=== PATIENT | male | born 1950 | race Caucasian/White ===

== ENCOUNTER 2019-01-30 13:38 | Inpatient (IN) ==
[2019-01-30] MEDS ORDERED: 0.9 % Sodium Chloride 1,000 ML IVC ONE (14:16)
[2019-01-30 15:20] LABS: Troponin I < 0.03 ng/mL (< 0.04)
[2019-01-30] MEDS ORDERED: Naloxone 0.4 MG/ML INJ IVP PRN (17:49)
[2019-01-30] MEDS ORDERED: Nitroglycerin 0.4 MG TAB.SUBL SL PRN (17:57)
[2019-01-30 18:21] LABS: Magnesium 2.3 mg/dL (1.6-2.6); Phosphorous 3.1 mg/dL (2.7-4.5)
[2019-01-30] MEDS: Levalbuterol Neb 0.63 MG/3 ML IH SCH (22:06)
[2019-01-30] MEDS: Budesonide/Formoterol 160/4.5 1 PUFF INH IH SCH (22:06)
[2019-01-30] MEDS: *HR* Heparin 5,000 UNIT/ML VIAL SQ SCH (22:17)
[2019-01-30] MEDS: predniSONE 20 MG TABLET PO SCH (22:23)
[2019-01-30] MEDS: *HR* Ticagrelor 90 MG TABLET PO SCH (22:24)
[2019-01-30] MEDS: Methocarbamol 750 MG TABLET PO SCH (22:26)
[2019-01-31] MEDS: Levalbuterol Neb 0.63 MG/3 ML IH SCH ×4 (04:55→22:00)
[2019-01-31] MEDS: *HR* Heparin 5,000 UNIT/ML VIAL SQ SCH ×2 (05:43→18:39)
[2019-01-31 07:35] LABS: Basophils % 0.4 %; Eosinophils # 0.2 K/mcL (0.0-0.6); Eosinophils % 2.3 %; Hematocrit 34.3 % (37.5-50.1); Hemoglobin 10.9 g/dL (12.9-16.9); Immature Granulocytes % 0.5 % (0-4); Lymphocytes # 1.2 K/mcL (0.6-4.6); Lymphocytes % 15.3 %; Mean Corpuscular HGB Conc 31.8 g/dL (31.6-35.5); Mean Corpuscular Hemoglobin 24.3 pg (28.0-33.3); Mean Corpuscular Volume 76.6 fL (83.0-100.0); Mean Platelet Volume 9.3 fL (9.4-12.4); Monocytes # 0.8 K/mcL (0.0-1.3); Neutrophils # 5.5 K/mcL (1.6-8.9); Platelet Count 314 K/mcL (140-400); Red Blood Count 4.48 M/mcL (4.19-5.50); Red Cell Distribution Width 16.9 % (11.5-14.5); Segmented Neutrophils % 71.5 %; White Blood Count 7.7 K/mcL (4.3-11.1)
[2019-01-31] MEDS: Aspirin Enteric Coated 81 MG Tablet PO SCH (07:50)
[2019-01-31] MEDS: *HR* Ticagrelor 90 MG TABLET PO SCH ×2 (07:50→20:37)
[2019-01-31] MEDS: predniSONE 20 MG TABLET PO SCH (07:50)
[2019-01-31] MEDS: Methocarbamol 750 MG TABLET PO SCH ×3 (07:51→20:39)
[2019-01-31] MEDS: Isosorbide MONOnitrate (24 HR) 30 MG TAB.ER.24H PO SCH (07:51)
[2019-01-31 08:02] LABS: BUN/Creatinine Ratio 9 (6-26); Blood Urea Nitrogen 11 mg/dL (8-23); Calcium 8.4 mg/dL (8.6-10.3); Carbon Dioxide 20 mEq/L (23-29); Chloride 106 mEq/L (98-107); Glucose 113 mg/dL (70-105); Osmolality,Calculated 284 (280-300); Potassium 3.9 mEq/L (3.5-5.1); Sodium 137 mEq/L (136-145); eGFR For African Americans > 60 (> 60); eGFR For Non-African Americans > 60 (> 60)
[2019-01-31] MEDS: Tiotropium 18 MCG inhalation IH SCH (10:22)
[2019-01-31] MEDS: Budesonide/Formoterol 160/4.5 1 PUFF INH IH SCH ×2 (10:22→22:00)
[2019-01-31] MEDS ORDERED: 0.9 % Sodium Chloride 250 ML IVC ONE (12:25)
[2019-01-31] MEDS ORDERED: 0.9 % Sodium Chloride 250 ML ONE (12:27)
[2019-01-31] MEDS: Ondansetron ODT 4 MG TAB.RAPDIS SL PRN (13:00)
[2019-02-01 03:17] LABS: % Iron Saturation 5 % (20-55); Iron 12 mcg/dL (65-175); Transferrin 186 mg/dL (203-362)
[2019-02-01 03:33] LABS: Ferritin 117 ng/mL (20-250)
[2019-02-01 03:39] LABS: Folate 15.4 ng/mL (3.0-16.0)
[2019-02-01] MEDS: Levalbuterol Neb 0.63 MG/3 ML IH SCH ×4 (03:40→22:29)
[2019-02-01] MEDS ORDERED: 0.9 % Sodium Chloride 500 ML IVC ONE (04:22)
[2019-02-01] MEDS ORDERED: *HR* Metoprolol 5 MG/5 ML VIAL IVP ONE ×3 (04:22→04:49)
[2019-02-01] MEDS ORDERED: 0.9 % Sodium Chloride 500 ML ONE (04:23)
[2019-02-01 05:04] LABS: Basophils % 0.1 %; Eosinophils # 0.2 K/mcL (0.0-0.6); Eosinophils % 1.8 %; Hematocrit 34.3 % (37.5-50.1); Hemoglobin 10.8 g/dL (12.9-16.9); Immature Granulocytes % 0.6 % (0-4); Lymphocytes # 1.1 K/mcL (0.6-4.6); Mean Corpuscular HGB Conc 31.5 g/dL (31.6-35.5); Mean Corpuscular Hemoglobin 24.4 pg (28.0-33.3); Mean Corpuscular Volume 77.6 fL (83.0-100.0); Mean Platelet Volume 9.4 fL (9.4-12.4); Monocytes # 0.9 K/mcL (0.0-1.3); Monocytes % 9.6 %; Neutrophils # 6.7 K/mcL (1.6-8.9); Platelet Count 310 K/mcL (140-400); Red Blood Count 4.42 M/mcL (4.19-5.50); Red Cell Distribution Width 16.8 % (11.5-14.5); Segmented Neutrophils % 75.9 %; White Blood Count 8.9 K/mcL (4.3-11.1)
[2019-02-01 05:07] LABS: BUN/Creatinine Ratio 10 (6-26); Blood Urea Nitrogen 12 mg/dL (8-23); Calcium 8.1 mg/dL (8.6-10.3); Carbon Dioxide 18 mEq/L (23-29); Chloride 105 mEq/L (98-107); Glucose 121 mg/dL (70-105); Magnesium 2.1 mg/dL (1.6-2.6); Osmolality,Calculated 277 (280-300); Potassium 3.9 mEq/L (3.5-5.1); Sodium 133 mEq/L (136-145); eGFR For African Americans > 60 (> 60); eGFR For Non-African Americans 58 (> 60)
[2019-02-01] MEDS ORDERED: 0.9 % Sodium Chloride 500 ML IV ONE (05:11)
[2019-02-01] MEDS ORDERED: Amiodarone Premix 150 MG/100 ML BAG IVPB ONE (05:27)
[2019-02-01] MEDS ORDERED: Amiodarone Premix 360 MG/200 ML BAG IVC ONE (06:00)
[2019-02-01] MEDS: *HR* Heparin 5,000 UNIT/ML VIAL SQ SCH (06:05)
[2019-02-01] MEDS: Aspirin Enteric Coated 81 MG Tablet PO SCH (09:12)
[2019-02-01] MEDS: Methocarbamol 750 MG TABLET PO SCH ×2 (09:12→21:05)
[2019-02-01] MEDS: Isosorbide MONOnitrate (24 HR) 30 MG TAB.ER.24H PO SCH (09:12)
[2019-02-01] MEDS: *HR* Ticagrelor 90 MG TABLET PO SCH ×2 (09:12→21:05)
[2019-02-01] MEDS: Tiotropium 18 MCG inhalation IH SCH (09:43)
[2019-02-01] MEDS: Budesonide/Formoterol 160/4.5 1 PUFF INH IH SCH ×2 (09:46→22:35)
[2019-02-01] MEDS: Amiodarone Premix 360 MG/200 ML BAG IVC SCH (12:06)
[2019-02-01] MEDS ORDERED: *HR* Heparin 5,000 UNIT/ML VIAL IVP PRN (12:52)
[2019-02-01 13:52] LABS: Hematocrit 34.5 % (37.5-50.1); Hemoglobin 10.8 g/dL (12.9-16.9); Mean Corpuscular HGB Conc 31.3 g/dL (31.6-35.5); Mean Corpuscular Hemoglobin 24.4 pg (28.0-33.3); Mean Corpuscular Volume 77.9 fL (83.0-100.0); Mean Platelet Volume 9.1 fL (9.4-12.4); Platelet Count 298 K/mcL (140-400); Red Blood Count 4.43 M/mcL (4.19-5.50); Red Cell Distribution Width 16.9 % (11.5-14.5); White Blood Count 7.8 K/mcL (4.3-11.1)
[2019-02-01 14:04] LABS: INR 1.2
[2019-02-01] MEDS ORDERED: Ferumoxytol 510 MG in 0.9 % Sodium Chloride 100 ML IVPB ONE (14:22)
[2019-02-01] MEDS: Heparin 25,000 UNIT/250 ML D5W 25,000 UNIT/250 ML IV.SOLN IVC SCH (15:06)
[2019-02-01] MEDS: Acetaminophen 325 MG TABLET PO PRN ×2 (16:02→22:44)
[2019-02-02] MEDS: *HR* Heparin 5,000 UNIT/ML VIAL IVP PRN ×2 (00:25→07:58)
[2019-02-02] MEDS: Amiodarone Premix 360 MG/200 ML BAG IVC SCH (00:27)
[2019-02-02] MEDS: Levalbuterol Neb 0.63 MG/3 ML IH SCH ×4 (03:52→23:06)
[2019-02-02 07:04] LABS: Basophils % 0.4 %; Eosinophils # 0.1 K/mcL (0.0-0.6); Eosinophils % 1.7 %; Hematocrit 36.4 % (37.5-50.1); Hemoglobin 11.5 g/dL (12.9-16.9); Immature Granulocytes % 0.5 % (0-4); Lymphocytes # 0.9 K/mcL (0.6-4.6); Lymphocytes % 10.5 %; Mean Corpuscular HGB Conc 31.6 g/dL (31.6-35.5); Mean Corpuscular Hemoglobin 24.2 pg (28.0-33.3); Mean Corpuscular Volume 76.6 fL (83.0-100.0); Mean Platelet Volume 8.9 fL (9.4-12.4); Monocytes # 0.8 K/mcL (0.0-1.3); Monocytes % 9.5 %; Neutrophils # 6.5 K/mcL (1.6-8.9); Platelet Count 296 K/mcL (140-400); Red Blood Count 4.75 M/mcL (4.19-5.50); Red Cell Distribution Width 16.8 % (11.5-14.5); Segmented Neutrophils % 77.4 %; White Blood Count 8.4 K/mcL (4.3-11.1)
[2019-02-02 07:24] LABS: BUN/Creatinine Ratio 9 (6-26); Blood Urea Nitrogen 9 mg/dL (8-23); Calcium 8.7 mg/dL (8.6-10.3); Carbon Dioxide 21 mEq/L (23-29); Chloride 104 mEq/L (98-107); Glucose 125 mg/dL (70-105); Osmolality,Calculated 280 (280-300); Potassium 3.8 mEq/L (3.5-5.1); Sodium 135 mEq/L (136-145); eGFR For African Americans > 60 (> 60); eGFR For Non-African Americans > 60 (> 60)
[2019-02-02] MEDS: Methocarbamol 750 MG TABLET PO SCH ×2 (07:42→21:04)
[2019-02-02] MEDS: *HR* Ticagrelor 90 MG TABLET PO SCH (07:42)
[2019-02-02] MEDS: Isosorbide MONOnitrate (24 HR) 30 MG TAB.ER.24H PO SCH (07:42)
[2019-02-02] MEDS: Aspirin Enteric Coated 81 MG Tablet PO SCH (07:42)
[2019-02-02] MEDS: Budesonide/Formoterol 160/4.5 1 PUFF INH IH SCH ×2 (10:34→23:06)
[2019-02-02] MEDS: Tiotropium 18 MCG inhalation IH SCH (10:39)
[2019-02-02] MEDS: Metoprolol XL (24 HR) Succ 25 MG TAB.ER.24H PO SCH (11:35)
[2019-02-02] MEDS: Heparin 25,000 UNIT/250 ML D5W 25,000 UNIT/250 ML IV.SOLN IVC SCH (11:36)
[2019-02-02] MEDS: Ondansetron ODT 4 MG TAB.RAPDIS SL PRN (14:38)
[2019-02-02] MEDS: *HR* Rivaroxaban 10 MG TABLET PO SCH (17:02)
[2019-02-02] MEDS: Acetaminophen 325 MG TABLET PO PRN (21:26)
[2019-02-03] MEDS: Levalbuterol Neb 0.63 MG/3 ML IH SCH ×4 (04:36→22:58)
[2019-02-03] MEDS: Aspirin Enteric Coated 81 MG Tablet PO SCH (08:12)
[2019-02-03] MEDS: Methocarbamol 750 MG TABLET PO SCH ×2 (08:12→20:38)
[2019-02-03] MEDS: Isosorbide MONOnitrate (24 HR) 30 MG TAB.ER.24H PO SCH (08:13)
[2019-02-03] MEDS: Metoprolol XL (24 HR) Succ 25 MG TAB.ER.24H PO SCH (08:13)
[2019-02-03] MEDS: Acetaminophen 325 MG TABLET PO PRN ×2 (08:13→17:11)
[2019-02-03] MEDS: Tiotropium 18 MCG inhalation IH SCH (10:48)
[2019-02-03] MEDS: Budesonide/Formoterol 160/4.5 1 PUFF INH IH SCH ×2 (10:49→22:58)
[2019-02-03] MEDS: *HR* Rivaroxaban 10 MG TABLET PO SCH (16:01)
[2019-02-04] MEDS: Levalbuterol Neb 0.63 MG/3 ML IH SCH ×4 (04:07→22:53)
[2019-02-04] MEDS: Aspirin Enteric Coated 81 MG Tablet PO SCH (08:22)
[2019-02-04] MEDS: Methocarbamol 750 MG TABLET PO SCH ×2 (08:22→21:19)
[2019-02-04] MEDS: Budesonide/Formoterol 160/4.5 1 PUFF INH IH SCH ×2 (10:29→22:52)
[2019-02-04] MEDS: Tiotropium 18 MCG inhalation IH SCH (13:31)
[2019-02-04] MEDS: *HR* Rivaroxaban 10 MG TABLET PO SCH (17:03)
[2019-02-04] MEDS: Sennosides/Docusate Sodium TABLET PO SCH ×2 (17:03→21:19)
[2019-02-05] MEDS: Levalbuterol Neb 0.63 MG/3 ML IH SCH ×3 (04:47→15:58)
[2019-02-05] MEDS: Methocarbamol 750 MG TABLET PO SCH (07:49)
[2019-02-05] MEDS: Aspirin Enteric Coated 81 MG Tablet PO SCH (07:49)
[2019-02-05] MEDS: Sennosides/Docusate Sodium TABLET PO SCH (07:50)
[2019-02-05] MEDS: Budesonide/Formoterol 160/4.5 1 PUFF INH IH SCH (10:59)
[2019-02-05] MEDS: Tiotropium 18 MCG inhalation IH SCH (11:00)
[2019-02-05 16:17] VITALS: BP 97/62
[2019-02-05] MEDS: *HR* Rivaroxaban 10 MG TABLET PO SCH (17:16)
== END 2019-02-05 18:40 | disposition home or self-care (01) | DRG 309 ==
LOC: 3BNU 13:38 → EMEROOARM 13:38 → SUATTDRO 21:05 → 3BNU 21:40 → ICNU 02-01 05:48 → 2NNU 02-01 18:52
PROVIDERS: ADMIT Family Medicine; ATTEND Internal Medicine

== ENCOUNTER 2021-01-07 14:18 | Inpatient (IN) ==
[2021-01-07] MEDS ORDERED: Ondansetron 4 MG/2 ML VIAL IVP PRN (16:36)
[2021-01-07] MEDS ORDERED: Naloxone 0.4 MG/ML INJ IVP PRN (16:36)
[2021-01-07 17:45] LABS: Basophils % 0.6 %; Eosinophils # 0.3 K/mcL (0.0-0.6); Eosinophils % 5.3 %; Hematocrit 29.2 % (37.5-50.1); Hemoglobin 9.3 g/dL (12.9-16.9); Immature Granulocytes % 0.6 % (0-4); Lymphocytes # 1.1 K/mcL (0.6-4.6); Lymphocytes % 16.9 %; Mean Corpuscular HGB Conc 31.8 g/dL (31.6-35.5); Mean Corpuscular Hemoglobin 26.6 pg (28.0-33.3); Mean Corpuscular Volume 83.4 fL (83.0-100.0); Monocytes # 0.6 K/mcL (0.0-1.3); Monocytes % 9.8 %; Neutrophils # 4.2 K/mcL (1.6-8.9); Platelet Count 292 K/mcL (140-400); Red Cell Distribution Width 15.5 % (11.5-14.5); Segmented Neutrophils % 66.8 %; White Blood Count 6.2 K/mcL (4.3-11.1)
[2021-01-07 17:58] LABS: BUN/Creatinine Ratio 20 (6-26); Blood Urea Nitrogen 17 mg/dL (8-23); Calcium 8.7 mg/dL (8.6-10.3); Carbon Dioxide 22 mEq/L (23-29); Chloride 96 mEq/L (98-107); Glucose 117 mg/dL (70-105); Magnesium 2.1 mg/dL (1.6-2.6); Osmolality,Calculated 271 (280-300); Potassium 3.5 mEq/L (3.5-5.1); Sodium 129 mEq/L (136-145); Troponin I < 0.03 ng/mL (< 0.04); eGFR For African Americans > 60 (> 60); eGFR For Non-African Americans > 60 (> 60)
[2021-01-07 17:59] LABS: INR 1.7; Prothrombin Time 19.7 Seconds (9.4-12.1)
[2021-01-07] MEDS ORDERED: cefTRIAXone 1,000 MG in Water for inj. (sterile) 10 ML IVP SCH (19:00)
[2021-01-07] MEDS ORDERED: cefTRIAXone 1,000 MG in 0.9 % Sodium Chloride Mini Bag 100 ML IVPB SCH (19:00)
[2021-01-07] MEDS ORDERED: Azithromycin 500 MG in 0.9 % Sodium Chloride 250 ML IVPB SCH (19:00)
[2021-01-07 19:22] LABS: Adenovirus Not Detected (Not Detect); Bordetella Pertussis Not Detected (Not Detect); Chlamydophila pneumoniae Not Detected (Not Detect); Coronavirus 229E Not Detected (Not Detect); Coronavirus HKU1 Not Detected (Not Detect); Coronavirus NL63 Not Detected (Not Detect); Coronavirus OC43 Not Detected (Not Detect); Human Metapneumovirus Not Detected (Not Detect); Human Rhinovirus/Enterovirus Not Detected (Not Detect); Influenza A Subtype 2009 H1 Not Detected (Not Detect); Influenza B Not Detected (Not Detect); Mycoplasma pneumoniae Not Detected (Not Detect); Parainfluenza Virus 1 Not Detected (Not Detect); Parainfluenza Virus 2 Not Detected (Not Detect); Parainfluenza Virus 3 Not Detected (Not Detect); Parainfluenza Virus 4 Not Detected (Not Detect); Respiratory Syncytial Virus Not Detected (Not Detect); SARS-CoV-2 Not Detected (Not Detect)
[2021-01-07] MEDS ORDERED: Ipratropium/Albuterol Neb 3 ML IH PRN (19:36)
[2021-01-07] MEDS ORDERED: D5% in 0.9% NACL 1,000 ML IVC SCH (19:45)
[2021-01-07] MEDS: Piperacillin/Tazobactam 3.375 GM in 0.9 % Sodium Chloride Mini Bag 100 ML IVPB SCH (20:52)
[2021-01-07] MEDS ORDERED: *HR* Metoprolol 5 MG/5 ML VIAL IVP PRN (21:04)
[2021-01-07] MEDS: *HR* Enoxaparin 80 MG/0.8 ML SYRINGE SQ SCH (21:30)
[2021-01-08 02:15] LABS: Basophils % 0.7 %; Eosinophils # 0.3 K/mcL (0.0-0.6); Eosinophils % 7.6 %; Hematocrit 23.2 % (37.5-50.1); Immature Granulocytes % 0.4 % (0-4); Lymphocytes # 0.8 K/mcL (0.6-4.6); Lymphocytes % 18.2 %; Mean Corpuscular HGB Conc 32.3 g/dL (31.6-35.5); Mean Corpuscular Hemoglobin 26.5 pg (28.0-33.3); Mean Platelet Volume 9.3 fL (9.4-12.4); Monocytes # 0.6 K/mcL (0.0-1.3); Monocytes % 14.1 %; Neutrophils # 2.6 K/mcL (1.6-8.9); Platelet Count 264 K/mcL (140-400); Red Blood Count 2.83 M/mcL (4.19-5.50); Red Cell Distribution Width 15.5 % (11.5-14.5); White Blood Count 4.5 K/mcL (4.3-11.1)
[2021-01-08 02:17] LABS: Hemoglobin 7.5 g/dL (12.9-16.9)
[2021-01-08 02:35] LABS: % Iron Saturation 10 % (20-55); Iron 18 mcg/dL (65-175); Transferrin 128 mg/dL (203-362)
[2021-01-08 02:37] LABS: Alanine Aminotransferase 95 Units/L (7-52); Albumin 2.5 g/dL (3.5-5.7); Albumin/Globulin Ratio 0.8 (1.1-2.2); Alkaline Phosphatase 108 Units/L (34-104); Aspartate Amino Transferase 100 Units/L (13-39); BUN/Creatinine Ratio 17 (6-26); Bilirubin,Direct 0.1 mg/dL (0.0-0.2); Bilirubin,Indirect 0.4 mg/dL (0.0-1.0); Bilirubin,Total 0.5 mg/dL (0.3-1.0); Blood Urea Nitrogen 14 mg/dL (8-23); Calcium 7.9 mg/dL (8.6-10.3); Carbon Dioxide 20 mEq/L (23-29); Chloride 101 mEq/L (98-107); Globulin 3.1 g/dL (2.4-3.5); Glucose 107 mg/dL (70-105); Osmolality,Calculated 271 (280-300); Potassium 3.4 mEq/L (3.5-5.1); Sodium 130 mEq/L (136-145); Total Protein 5.6 g/dL (6.4-8.9); eGFR For African Americans > 60 (> 60); eGFR For Non-African Americans > 60 (> 60)
[2021-01-08 02:41] LABS: Thyroid Stimulating Hormone 3.571 mcIU/mL (0.340-5.600)
[2021-01-08 02:45] LABS: Ferritin 521 ng/mL (20-250)
[2021-01-08 02:51] LABS: Folate 20.9 ng/mL (3.0-16.0)
[2021-01-08 02:54] LABS: Vitamin B12 > 1500 pg/mL (250-1100)
[2021-01-08] MEDS: Piperacillin/Tazobactam 3.375 GM in 0.9 % Sodium Chloride Mini Bag 100 ML IVPB SCH ×3 (03:57→21:56)
[2021-01-08] MEDS ORDERED: Potassium Chloride Elixir 20 MEQ/15 ML UDC PO ONE (04:19)
[2021-01-08] MEDS ORDERED: 0.9 % Sodium Chloride 250 ML IVC SCH (04:30)
[2021-01-08] MEDS ORDERED: Potassium Chloride 40 MEQ, Lidocaine 1% 2 ML in 0.9 % Sodium Chloride 500 ML IVPB ONE (04:52)
[2021-01-08 06:48] LABS: Hematocrit 23.9 % (37.5-50.1); Hemoglobin 7.6 g/dL (12.9-16.9)
[2021-01-08] MEDS: *HR* Enoxaparin 80 MG/0.8 ML SYRINGE SQ SCH (06:51)
[2021-01-08] MEDS ORDERED: D5% in 0.9% NACL 1,000 ML IVC SCH (07:15)
[2021-01-08] MEDS: Nicotine 14 MG PATCH.TD24 TD SCH (09:06)
[2021-01-08] MEDS ORDERED: Nitroglycerin 0.4 MG TAB.SUBL SL PRN (10:11)
[2021-01-08] MEDS ORDERED: Levalbuterol 1 PUFF INHALER IH PRN (10:11)
[2021-01-08 11:15] LABS: Hematocrit 24.3 % (37.5-50.1); Hemoglobin 7.7 g/dL (12.9-16.9)
[2021-01-08] MEDS: Levalbuterol Neb 1.25 MG/3 ML IH SCH ×3 (11:34→21:57)
[2021-01-08] MEDS: Artificial Tears SOLN 15 ML BOTTLE BOTH EYES SCH ×3 (13:50→21:59)
[2021-01-09 02:59] LABS: Basophils % 0.3 %; Eosinophils # 0.3 K/mcL (0.0-0.6); Eosinophils % 5.4 %; Hematocrit 28.7 % (37.5-50.1); Immature Granulocytes % 0.7 % (0-4); Lymphocytes # 0.8 K/mcL (0.6-4.6); Lymphocytes % 13.9 %; Mean Corpuscular HGB Conc 33.4 g/dL (31.6-35.5); Mean Corpuscular Hemoglobin 27.4 pg (28.0-33.3); Mean Corpuscular Volume 81.8 fL (83.0-100.0); Mean Platelet Volume 8.7 fL (9.4-12.4); Monocytes # 0.7 K/mcL (0.0-1.3); Platelet Count 270 K/mcL (140-400); Red Blood Count 3.51 M/mcL (4.19-5.50); Red Cell Distribution Width 15.2 % (11.5-14.5); Segmented Neutrophils % 67.7 %; White Blood Count 5.9 K/mcL (4.3-11.1)
[2021-01-09 03:00] LABS: Hemoglobin 9.6 g/dL (12.9-16.9)
[2021-01-09 03:18] LABS: BUN/Creatinine Ratio 12 (6-26); Blood Urea Nitrogen 9 mg/dL (8-23); Calcium 8.4 mg/dL (8.6-10.3); Carbon Dioxide 21 mEq/L (23-29); Chloride 102 mEq/L (98-107); Glucose 114 mg/dL (70-105); Osmolality,Calculated 270 (280-300); Potassium 3.8 mEq/L (3.5-5.1); Sodium 130 mEq/L (136-145); eGFR For African Americans > 60 (> 60); eGFR For Non-African Americans > 60 (> 60)
[2021-01-09] MEDS: Levalbuterol Neb 1.25 MG/3 ML IH SCH ×4 (04:00→22:32)
[2021-01-09] MEDS: Piperacillin/Tazobactam 3.375 GM in 0.9 % Sodium Chloride Mini Bag 100 ML IVPB SCH ×3 (04:52→20:48)
[2021-01-09] MEDS: Nicotine 14 MG PATCH.TD24 TD SCH (08:03)
[2021-01-09] MEDS: Artificial Tears SOLN 15 ML BOTTLE BOTH EYES SCH ×4 (09:31→20:50)
[2021-01-09] MEDS: Isosorbide MONOnitrate (24 HR) 30 MG TAB.ER.24H PO SCH (09:36)
[2021-01-09] MEDS: Pantoprazole 40 MG VIAL IVP SCH (09:39)
[2021-01-09] MEDS ORDERED: Lidocaine -MPF 2% 2 ML VIAL ONE (12:12)
[2021-01-09] MEDS ORDERED: *HR* Etomidate 40 MG/20 ML VIAL IVP ONE (12:26)
[2021-01-09] MEDS ORDERED: *HR* LORazepam 2 MG/ML VIAL IVP ONE (15:22)
[2021-01-09] MEDS: Acetaminophen 325 MG TABLET PO PRN (18:22)
[2021-01-09] MEDS ORDERED: 0.9 % Sodium Chloride 1,000 ML IVC SCH (20:30)
[2021-01-10] MEDS: Levalbuterol Neb 1.25 MG/3 ML IH SCH ×2 (03:39→10:55)
[2021-01-10] MEDS: Piperacillin/Tazobactam 3.375 GM in 0.9 % Sodium Chloride Mini Bag 100 ML IVPB SCH (04:59)
[2021-01-10 05:40] LABS: Basophils % 0.4 %; Eosinophils # 0.3 K/mcL (0.0-0.6); Eosinophils % 5.1 %; Hematocrit 28.4 % (37.5-50.1); Hemoglobin 9.3 g/dL (12.9-16.9); Immature Granulocytes % 0.5 % (0-4); Lymphocytes # 0.8 K/mcL (0.6-4.6); Lymphocytes % 14.8 %; Mean Corpuscular HGB Conc 32.7 g/dL (31.6-35.5); Mean Corpuscular Volume 82.3 fL (83.0-100.0); Mean Platelet Volume 8.9 fL (9.4-12.4); Monocytes # 0.6 K/mcL (0.0-1.3); Monocytes % 9.7 %; Platelet Count 253 K/mcL (140-400); Red Blood Count 3.45 M/mcL (4.19-5.50); Red Cell Distribution Width 15.4 % (11.5-14.5); Segmented Neutrophils % 69.5 %; White Blood Count 5.7 K/mcL (4.3-11.1)
[2021-01-10 06:01] LABS: BUN/Creatinine Ratio 9 (6-26); Blood Urea Nitrogen 7 mg/dL (8-23); Calcium 8.1 mg/dL (8.6-10.3); Carbon Dioxide 21 mEq/L (23-29); Chloride 103 mEq/L (98-107); Glucose 104 mg/dL (70-105); Osmolality,Calculated 276 (280-300); Potassium 3.6 mEq/L (3.5-5.1); Sodium 134 mEq/L (136-145); eGFR For African Americans > 60 (> 60); eGFR For Non-African Americans > 60 (> 60)
[2021-01-10] MEDS: Isosorbide MONOnitrate (24 HR) 30 MG TAB.ER.24H PO SCH (08:24)
[2021-01-10] MEDS: Nicotine 14 MG PATCH.TD24 TD SCH (08:25)
[2021-01-10] MEDS: Artificial Tears SOLN 15 ML BOTTLE BOTH EYES SCH (08:25)
[2021-01-10] MEDS: Pantoprazole 40 MG VIAL IVP SCH (08:25)
[2021-01-10] MEDS ORDERED: Aspirin Enteric Coated 81 MG Tablet PO SCH (09:00)
[2021-01-10] MEDS: Acetaminophen 325 MG TABLET PO PRN (11:03)
[2021-01-10 11:24] VITALS: BP 99/63
== END 2021-01-10 14:03 | disposition home or self-care (01) | DRG 177 ==
LOC: 2ANU → SUATTDRO 16:09
PROVIDERS: ADMIT Pharmacist; ATTEND Pharmacist